=== PATIENT | male | born 1975 | race Caucasian/White ===

== ENCOUNTER 2019-02-08 06:58 | Emergency (ER) | payer OTHER, SELFPAY ==
[2019-02-08] VITALS (20 sets, daily range): BP systolic 140–167; BP diastolic 66–120; PULSE 78–108; RESP 13–24; TEMP 36.7–37.2; O2SAT 93–99; BMI 34.1
--- NOTE | 2019-02-08 07:29 | ED.NEUROSD ---
HPI - Neuro Symptoms/Deficit General Chief Complaint: Neuro Symptoms/Deficit Stated Complaint: LEFT SIDE FACE DROOP Time Seen by Provider: 02/08/19 07:05 Source: patient Mode of arrival: ambulatory Limitations: no limitations History of Present Illness HPI Narrative: Patient comes emergency department complaining left facial weakness and left hand numbness. He states that he 1st noticed it when he was at work at about 645 this morning. 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 Patient states that he then realized that his left upper lip felt fat. He states it is that he looked in the mirror and noticed that his mouth was drooping on the left side. States he has a patch of numbness that is red around the mouth but does not involve the rest of his face. No visual changes. No difficulty speaking or swallowing. No weakness in any extremity. Patient states he was able to drink his coffee without the coffee dribbling of his mouth. Patient denies recent viral illness. He has no history of CVA. He is not a smoker, and has no diagnosis of hypertension or diabetes. No family history of stroke or [place] in the 30s or 40s. No history of DVT. Patient has no history of coronary artery disease or other vascular pathology. Patient states he has a job that involves physical activity, but does not exercise regularly. No headache. No other complaints at this time. On Anticoagulants: No Related Data Home Medications Medication Instructions Recorded Confirmed No Known Home Medications 02/08/19 02/08/19 Allergies Allergy/AdvReac Type Severity Reaction Status Date / Time naproxen [NAPROXEN] Allergy Unknown Verified 02/08/19 07:28 Review of Systems Constitutional Denies chills, Denies fever(s), Denies lethargy and Reports weakness Eyes Denies change in vision, Denies eye discharge, Denies irritation and Denies loss of vision ENT Ears, Nose, Mouth, and Throat: Denies change in voice, Denies neck pain and Denies sore throat Cardiovascular Denies chest pain, Denies irregular heart rhythm, Denies lightheadedness, Denies palpitations, Denies dyspnea, Denies dyspnea on exertion and Denies orthopnea Respiratory Denies cough, Denies dyspnea, Denies dyspnea on exertion and Denies wheezing Gastrointestinal Gastrointestinal: Denies abdominal pain, Denies change in bowel habits, Denies diarrhea, Denies nausea and Denies vomiting Genitourinary Denies hematuria, Denies flank pain, Denies urinary incontinence and Denies urinary urgency Musculoskeletal Denies neck pain Integumentary/Breasts Denies pruritus, Denies erythema, Denies rash and Denies wounds Neurologic Denies confusion, Denies loss of vision and Reports weakness Comments: Mouth droop, perioral numbness on left side Psychiatric Denies anxiety, Denies confusion, Denies depression, Denies homicidal ideation and Denies suicidal ideation Endocrine Denies palpitations Hematologic/Lymphatic Denies easy bruising Allergic/Immunologic Denies wheezing [facility] Medical History Healthy adult (Acute) Social History Smoking Status: Never smoker Social History Smoking Status: Never smoker Exam Initial Vital Signs Initial Vital Signs: Vital Signs Temperature 98.1 F 02/08/19 07:15 Pulse Rate 105 H 02/08/19 07:15 Respiratory Rate 24 02/08/19 07:15 Blood Pressure 167/120 H 02/08/19 07:15 Pulse Oximetry 98 02/08/19 07:15 Const General: cooperative and well developed Nutritional Appearance: well nourished Orientation: alert, awake, oriented x3 and not confused [facility] Head: normocephalic and atraumatic Ears: external ears normal and TM's normal bilaterally Nose: external nose normal and No nasal discharge Face and sinus: sinuses nontender, face symmetric, no sinus tenderness and No dry mucous membranes Mouth: oral mucosae normal and moist mucous membranes Teeth and gingiva: dentition normal Throat: tonsils normal and uvula midline Eyes General: appearance normal, both eyes and all related structures Eyelids: eyelids normal Conjunctivae: conjunctivae normal Sclera: sclerae normal Pupils: PERRL EOM: EOM intact bilaterally Neck Neck: normal visual inspection, trachea midline, No lymphadenopathy, No midline deformity and No JVD Lymphatic: No lymphedema Chest Chest: normal inspection of the chest Resp Effort & Inspection: normal respiratory effort, able to speak in complete sentences, no respiratory distress and no use of accessory muscles Auscultation: clear to auscultation bilaterally, no rales, no rhonchi and no wheezes Cardio Rate: regular rate Rhythm: regular rhythm Heart Sounds: no click, no gallops, no murmurs and no rubs Pulses: normal peripheral pulses GI Inspection: non-distended Palpation: soft, no hepatosplenomegaly, No guarding, No pulsatile mass and No tender Auscultation: normal bowel sounds Back/Spine/Pelvis Back: No CVA tenderness Cervical Spine: cervical ROM normal and No pain with cervical ROM Thoracic/Lumbar Spine: thoracic and lumbar spine normal to inspection Skin General: no rashes or lesions noted, No jaundice and No petechiae Neuro General: alert, oriented x3 and gait normal Cranial Nerves: No CN's II-XI intact bilaterally (Patient has mild drooping of his left mouth.) Speech: speech normal Motor: strength 5/5 throughout Other: Cranial nerves are intact on the left side, with exception of a mild droop of the left side of the mouth only. Extrem General: full ROM, no clubbing, cyanosis or edema, no pedal edema and no calf tenderness Psych Appearance: well kempt Mental Status: mental status grossly normal Attitude: cooperative Thought Content: normal and suicidality Judgment: judgment good Course Course Narrative: Patient was evaluated by myself immediately upon arrival as per ?code stroke? protocol. He was found to be well appearing overall, and the droop and sense of numbness was very localized to a small area around the patient's mouth. His speech was clear, and he had no other evidence of deficit. His initial stroke scale score was 3, due to the decreased sharp sensation around the patient's mouth, as well as the droop, as well as the patient confusion over the months. The patient had been completely appropriate during my history taking, and was quite anxious about his condition, and I suspected this may be part of the reason for the confusion over the month. CT of the head was negative. Patient was given a dose of aspirin 324 mg at this time. As the patient also did not meet the criteria for Kauffman's palsy, he was sent for an MRI of the brain to evaluate possible acute cerebral ischemia. This did show a 2 cm area of acute ischemia in the superior parietal region on the right. Patient's NIH stroke scale at this point was 1-2, with only a very tiny patch of decreased sensation to sharp touch on the left aspect of the lower portion the bridge of his nose, and only a very slight, much improved area of weakness involving only the patient's mouth on the left. Patient was completely alert and oriented x4. I spoke with Dr. Tony Hernandez, the Stroke attending at [facility], and he requested CTA's of the head and neck, as well as echocardiogram. These were done, and after some delay and getting an official reading on the echocardiogram I did speak with [facility] neurologist again, though Dr. Miner was now on duty. She did state that she was concerned that the patient's CTA findings may represent a dissection of the internal carotid. However, after attempts to get the patient transferred to [facility], it was found that there were no beds available any other locations, so we did call [facility], instead. I spoke with Dr. Merritt, the on-call stroke attending, and he did agree to accept the patient on behalf of the hospitalist. was the accepting hospitalist. I did re-evaluate the patient multiple times during his stay in the emergency department, and he was found to be stable and feeling better, though somewhat anxious about his condition. We have discussed the findings on the patient's imaging studies, and the need for transfer. Patient's has been present for discussion. The patient and agree to the transfer. Orders Ordered: Discontinued Medications Aspirin (Aspirin Chew) 324 mg PO NOW ONE Stop: 02/08/19 07:30 Last Admin: 02/08/19 07:48 Dose: 324 mg Atorvastatin Calcium (Lipitor) 40 mg PO NOW ONE Stop: 02/08/19 10:49 Last Admin: 02/08/19 12:17 Dose: 40 mg Sodium Chloride (Normal Saline 0.9%) 1,000 mls @ 1,000 mls/hr IV BOLUS ONE Stop: 02/08/19 08:10 Last Infusion: 02/08/19 08:48 Dose: 0 mls/hr Admin: 02/08/19 07:48 Dose: 1,000 mls/hr Vital Signs - 8 hr 02/08/19 13:55 02/08/19 14:58 02/08/19 16:00 Temperature 98.4 F 99 F Pulse Rate 103 H 88 89 Respiratory Rate 17 14 15 Blood Pressure [Right Arm] 147/98 H 157/104 H 149/98 H Pulse Oximetry 97 97 98 02/08/19 16:30 02/08/19 17:00 02/08/19 17:38 Temperature Pulse Rate 89 97 H 93 H Respiratory Rate 15 20 20 Blood Pressure [Right Arm] 150/92 H 146/94 H 153/97 H Pulse Oximetry 95 98 96 02/08/19 18:38 02/08/19 19:30 02/08/19 20:00 Temperature Pulse Rate 90 88 84 Respiratory Rate 20 13 14 Blood Pressure [Right Arm] 165/101 H 144/98 H 140/80 Pulse Oximetry 99 97 95 MDM - Neuro Symptoms/Deficit Medical Records Attestation: I reviewed the patient's medical records. Lab Data Attestation: I reviewed the patient's lab results. Result diagrams: 02/08/19 07:30 02/08/19 07:30 Lab Results 02/08/19 02/08/19 02/08/19 Range/Units 07:30 07:30 07:30 WBC 5.3 (4.5-11.0) X10^3/uL RBC 4.98 (4.5-5.9) X10^6/uL Hgb 14.9 (13.5-17.5) g/dL Hct 42.5 (41-53) % MCV 85.4 (80-100) fL MCH 29.9 (26-34) PG MCHC 35.0 (30-36) % RDW 12.7 (11.6-14.8) % Plt Count 128 L (150-400) X10^3/uL Neut % (Auto) 53.9 (50-75) % Lymph % (Auto) 32.9 (25-40) % [place] % (Auto) 11.3 (3-14) % Eos % (Auto) 1.3 L (2-4) % Baso % (Auto) 0.6 (0-2) % Neut # (Auto) 2900 (0864-0987) /uL Lymph # (Auto) 1800 (3859-2175) /uL [place] # (Auto) 600 (0-900) /uL Eos # (Auto) 100 (0-450) /uL Baso # (Auto) 0 (0-100) /uL PT 10.8 (10.1-12.7) SECONDS INR 0.9 (0.9-1.3) Sodium 140 (137-145) mmol/L Potassium 4.1 (3.4-5.1) mmol/L Chloride 104 (98-107) mmol/L Carbon Dioxide 28 (22-32) mmol/L BUN 17 (9-20) mg/dL Creatinine 0.70 (0.66-1.25) mg/dL Estimated GFR > 60.0 (>60) mL/min BUN/Creatinine Ratio 24.3 H (6-22) Glucose 118 H (70-100) mg/dL Calcium 9.3 (8.4-10.2) mg/dL Total Bilirubin 0.7 (0.2-1.3) mg/dL AST 46 (17-59) IU/L ALT 71 (21-72) IU/L Alkaline Phosphatase 50 (38-126) U/L Total Protein 7.6 (6.3-8.2) g/dL Albumin 4.3 (3.5-5.0) g/dL Globulin 3.3 (1.7-4.1) g/dL Albumin/Globulin Ratio 1.3 (1.0-2.8) Urine Dip Bedside Urine Glucose Negative Bedside Urine Bilirubin - Negative Bedside Urine Ketone - Negative Urine Specific [place] 1.020 Bedside Urine Occult Blood - Negative Bedside Urine pH 6.0 Bedside Urine Protein - Negative Bedside Urine Urobilinogen - Negative Bedside Urine Nitrite - Negative Bedside Urine Leukocytes - Negative Esterase Imaging Data MRI - head: Radiologist's impression: [facility] DATE TYPE STATUS AUTHOR Hx 02/08/19 10:58 Aubrey Montiel 02/08/19 10:48 Jerel Lambert 02/08/19 07:42 Mary Ann Malik 02/08/19 07:38 Yasir Holman Jeremy R 43, M1975 REG ER, ED.LOC - Main ED: R11 182.88cm 114.1kg BMI: 34.1kg/m? Neuro Symptoms/Deficit Search Chart ONSET Today 14:58 Artie Mercedes M [address] [address] Magnetic Resonance Report Signed Patient: DarenFrankieArtie RMR#: [id number] : 1975Acct:[id number] Age/Sex: 43 / MDate of Service: 02/08/19 Loc: ED Accession Number: [id number] Procedure: MR brain (IAC) wwo con Ordering Provider: Jeimy King MD PROCEDURE: MR BRAIN (IAC) WWO CON INDICATIONS: facial droop TECHNIQUE: Noncontrast sagittal T1 spin echo, axial FLAIR, axial gradient echo, axial diffusion and ADC through the brain. Axial thin-slice 3D CISS, coronal TruFISP, axial T1 spin echo with fat saturation through the internal auditory canals. After the administration of contrast, thin slice axial and coronal T1 spin echo with fat saturation through the internal auditory canals, and axial T1 spin echo with fat saturation through the brain. COMPARISON: [facility], CT, CT HEAD/BRAIN WO CON, 02/08/2019, 7:11. FINDINGS: Image quality: Excellent. Cerebellopontine angles: No cerebellopontine angle masses. Inner ear structures appear normally formed. No suspicious enhancement in the internal auditory canal or along the course of the 7th cranial nerve. CSF spaces: Ventricles are normal in size and shape. No extra-axial fluid collections. Basal cisterns are patent. Brain: No intracranial bleeds or mass effects. [place]-white matter interface is intact except at the right parietal region superiorly where a 2 cm focus of acute or subacute ischemic injury can be seen on the diffusion imaging pulse sequence series 10 image 70. This has a subtle degree of elevated flair signal and on the gradient T1 imaging a small focus of curvilinear low signal intensity is present conceivably a thrombus within a vessel within the associated cortical sulcus. No significant mass effect. No abnormal intracranial enhancement. Diffusion weighted images demonstrate no acute ischemic insults. Brainstem appears normal. Normal intravascular flow voids are present. Skull and face: Calvarial marrow signal is normal. Orbits appear normal. Sinuses: Sinuses and mastoids are clear. IMPRESSION: Small 2 cm acute or subacute ischemic injury involving the right parietal lobe superiorly as discussed, potentially embolic in origin given the small low signal intensity curvilinear signal abnormality in an area of cortical vessel within the sulcus abutting the area of injury. The findings were discussed in detail with the ordering emergency room physician caring for the patient. This area of abnormality cannot be identified on the earlier CT scanning from today. No additional area of prior ischemic injury is found. No cranial nerve abnormality is identified. Dictated by: Yasir Holman M.D. on 02/08/2019 at 9:54 Approved by: Yasir Holman M.D. on 02/08/2019 at 10:05 CT scan - head: Radiologist's impression: PROCEDURE: CT HEAD/BRAIN WO CON INDICATIONS: Facial droop, numbness to lt hand TECHNIQUE: Noncontrast 4.5 mm thick angled axial sections acquired from the foramen magnum to the vertex, with coronal and sagittal reformats. For radiation dose reduction, the following was used: automated exposure control, adjustment of mA and/or kV according to patient size. COMPARISON: None. FINDINGS: Image quality: Excellent. CSF spaces: Basal cisterns are patent. No extra-axial fluid collections. Ventricles are normal in size and shape. Brain: No midline shift. No intracranial masses or hemorrhage. [place]-white matter interface is normal. Skull and face: Calvarium and visualized facial bones are intact, without suspicious lesions. Sinuses: Visualized sinuses and mastoids are clear. IMPRESSION: 1. No acute intracranial abnormalities. No significant discrepancy with the night baker radiology preliminary report. Dictated by: Wally Malik M.D. on 02/08/2019 at 7:48 Approved by: Wally Malik M.D. on 02/08/2019 at 7:49 CT angio head/neck: Radiologist's impression: PROCEDURE: CT ANGIO HEAD AND NECK INDICATIONS: left facial droop TECHNIQUE: Pre-contrast images were performed earlier in the day and are not repeated. After the administration of intravenous contrast, 1 mm thick sections acquired from the aortic arch through the [place]. Post-contrast 4.5 mm thick sections then re-acquired from the foramen magnum to the vertex. 3-dimensional lbthgba-qoigvljdx-kpbrvxuhtj (MIP) and/or volume rendering reformats were acquired of the central intracranial vasculature and neck separately. COMPARISON: [facility], MR, MR BRAIN (IAC) WWO CON, 02/08/2019, 8:55. [facility], CT, CT HEAD/BRAIN WO CON, 02/08/2019, 7:11. FINDINGS: Image quality: Excellent. BRAIN: CSF spaces: Ventricles are normal in size and shape. Basal cisterns are patent. No extra-axial fluid collections. Brain: No midline shift. No intracranial bleeds or masses. [place]-white matter interface appears intact. Skull and face: Calvarium and facial bones appear intact, without suspicious lesions. Orbits appear normal. Sinuses: Sinuses and mastoids are clear. HEAD CT ANGIOGRAPHY: Anterior circulation: There is generalized narrowing seen of the right petrous intracranial internal carotid artery compared to the left. 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 This is considered to be a normal developmental variant of the [place] of [place], of typically no clinical consequence. The flow within the paired anterior cerebral arteries is otherwise normal and symmetric. The flow within the middle cerebral arteries is mildly asymmetric, and decreased on the right. No focal stenosis is seen within the right proximal middle cerebral artery. The anterior communicating artery is seen. No aneurysms are seen. Posterior circulation: Visualized portions of the vertebral arteries demonstrate normal caliber, and join to form a normal appearing basilar artery. Flow within the posterior cerebral arteries is normal and symmetric. No aneurysms are seen. NECK CT ANGIOGRAPHY: Carotid system: The great vessels demonstrate a conventional anatomy as they arise from the aortic arch. The origins of the common carotid arteries appear patent. The common carotid arteries demonstrate normal caliber and courses. The bifurcation regions are both widely patent. The internal carotid arteries demonstrate normal calibers and courses. Posterior circulation: The origins of the vertebral arteries both appear widely patent. The more superior extracranial portions of both vertebral arteries also demonstrate normal courses and calibers. They join to form a normal appearing basilar artery. Soft tissues: Visualized neck soft tissues demonstrate no suspicious abnormalities. Bones: No suspicious bony lesions. Visualized cervical spine appears normally aligned. IMPRESSION: Generalized narrowing of the right petrous internal carotid artery compared to the left. There is asymmetric flow seen within the middle cerebral arteries, decreased on the right compared to the left. [place] anomaly incidentally noted, with an aplastic right A1 segment. Any quantitative measurements of stenosis were performed using NASCET criteria. Dictated by: Aubrey Montiel M.D. on 02/08/2019 at 10:18 Approved by: Aubrey Montiel M.D. on 02/08/2019 at 10:23 Echocardiogram: Radiologist's impression: [place] [facility] +---------+ : : [address] : : : : [id number] : : : : Phone: [phone] Echocardiogram Report + + :Name: ARTIE MERCEDES Study Date: 02/08/2019 Height: 72 in : :[facility] Exam Location: [facility] Weight: 255 lb : : Gender: Male BSA: 2.4 m2 : :: 1975 Age: 43 yrs BP: 164/102 mmHg: :Reason For Study: STROKE : : Performed By: Johnny Worrell : :Referring: JEIMY KING : + + Interpretation Summary The ejection fraction is estimated to be 60-65%. Injection of contrast documented an interatrial shunt. There is no significant valvular heart disease. Procedure: A two-dimensional transthoracic echocardiogram with color flow and Doppler was performed. The study quality was technically good. There is no prior echocardiogram noted for this patient. A saline contrast injection was performed to assess for cardiac shunting. The patient was in normal sinus rhythm during the exam. Left Ventricle: The left ventricle is normal in size. There is normal left ventricular wall thickness. The ejection fraction is estimated to be 60-65%. There are no focal wall motion abnormalities. Right Ventricle: The right ventricle is normal in size and function. Atria: The left atrium is mildly dilated. Right atrial size is normal. Injection of contrast documented an interatrial shunt. Mitral Valve: The mitral valve is normal in structure and function. There is trace mitral regurgitation. Aortic Valve: The aortic valve is normal in structure and function. The aortic valve is trileaflet. The aortic valve opens well. No aortic regurgitation is present. Tricuspid Valve: The tricuspid valve is normal in structure and function. No tricuspid regurgitation. Pulmonary artery pressures cannot be estimated because of the lack of a measurable TR jet velocity. Pulmonic Valve: The pulmonic valve is normal in structure and function. There is trace pulmonic regurgitation. Great Vessels: The aortic root is normal size. The ascending aorta is mildly enlarged. The pulmonary artery is normal size. The IVC is of normal diameter and collapses greater than 50% with a sniff. This suggests a low right atrial pressure of 3 mm Hg. Pericardium/ Pleura There is no pericardial effusion. There is no pleural effusion. MMode/2D Measurements & Calculations LVIDd: 5.1 cm LVOT diam: 2.7 cm LVIDs: 3.6 cm Ao root diam: 3.3 cm FS: 29.5 % Aortic Jxn: 3.0 cm EPSS: 0.21 cm asc Aorta Diam: 3.8 cm IVSd: 1.3 cm LVPWd: 1.0 cm LV lara. diameter/BSA (cm/m^2): 2.2 LV sys. diameter/BSA (cm/m^2): 1.5 LA dimension: 4.0 cm RA long axis: 5.4 cm LA A2 area: 22.6 cm2 RA area: 21.1 cm2 LA A4 area: 23.7 cm2 RA vol: 70.4 ml LA length (vol): 5.6 cm RA : 29.8 ml/m2 LA vol: 80.8 ml IVC diam: 1.8 cm LA vol index: 34.2 ml/m2 Doppler Measurements & Calculations Ao V2 max: 150.6 cm/sec LVOT Max [place]: 122.3 cm/sec Ao V2 mean: 109.3 cm/sec LV V1 max P.0 mmHg Ao max P.1 mmHg LV V1 VTI: 26.2 cm Ao mean P.2 mmHg LANI(I,D): 5.3 cm2 Ao V2 VTI: 27.3 cm LANI(V,D): 4.5 cm2 sev ratio: 0.96 LANI indexed to BSA (cm^2/m^2): 2.3 MV E max pedro luis: 66.8 cm/sec PA V2 max: 83.1 cm/sec MV A max pedro luis: 66.2 cm/sec PA V2 mean: 64.0 cm/sec MV E/A: 1.0 PA mean P.7 mmHg Med Peak E' Pedro Luis: 6.9 cm/sec PA pr(Accel): 49.1 mmHg E/E' med: 9.7 PA Accel Time: 0.07 sec MV dec time: 0.19 sec SV(LVOT): 145.0 ml Reading Physician:01:31 PM ECG Data Attestation: I personally reviewed and interpreted this ECG as follows: (See below) Interpretation: Twelve lead EKG performed February 08, 2018 and 716, as follows: Regular ventricular rhythm with a rate of 107 beats per minute P waves present correlating with QRS complexes OH interval 185 millisecond QRS duration 86 milliseconds QTC interval 378 millisecond No ectopy No ST segment elevation or depression Interpretation: Sinus tachycardia; no signs of acute ischemia; abnormal EKG as interpreted being ED MD. Critical Care Time Critical Care Time: Yes Total Critical Care Time: 60 Attestation: Critical care time was necessary, due to high probability of imminent neurologic decline. Critical care time is exclusive of separately billable procedures. Critical care time included: Interviewing and examining the patient, ordering and reviewing laboratory studies, ordering and reviewing imaging studies, evaluating cardiac output, evaluating oxygen saturation, discussion with consultants, discussion with family, re-examining the patient, and documentation. Discharge Plan Departure Patient Disposition: Home Clinical Impression: Carotid artery dissection Cerebrovascular accident Qualifiers: CVA mechanism: other Qualified Code(s): I63.89 - Other cerebral infarction Prescriptions: No Action No Known Home Medications RF: 0 Referrals: Evangelina Renee ARNP [Primary Care Provider] -
--- NOTE | 2019-02-08 07:32 | ED_ITS ---
HPI - Neuro Symptoms/Deficit General Chief Complaint: Neuro Symptoms/Deficit Stated Complaint: LEFT SIDE FACE DROOP Time Seen by Provider: 02/08/19 07:05 Source: patient Mode of arrival: ambulatory Limitations: no limitations History of Present Illness HPI Narrative: Patient comes emergency department complaining left facial weakness and left hand numbness. He states that he 1st noticed it when he was at work at about 645 this morning. 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 Patient states that he then realized that his left upper lip felt fat. He states it is that he looked in the mirror and noticed that his mouth was drooping on the left side. States he has a patch of numbness that is red around the mouth but does not involve the rest of his face. No visual changes. No difficulty speaking or swallowing. No weakness in any extremity. Patient states he was able to drink his coffee without the coffee dribbling of his mouth. Patient denies recent viral illness. He has no history of CVA. He is not a smoker, and has no diagnosis of hypertension or diabetes. No family history of stroke or [place] in the 30s or 40s. No history of DVT. Patient has no history of coronary artery disease or other vascular pathology. Patient states he has a job that involves physical activity, but does not exercise regularly. No headache. No other complaints at this time. On Anticoagulants: No Related Data Home Medications Medication Instructions Recorded Confirmed No Known Home Medications 02/08/19 02/08/19 Allergies Allergy/AdvReac Type Severity Reaction Status Date / Time naproxen [NAPROXEN] Allergy Unknown Verified 02/08/19 07:28 Review of Systems Constitutional Denies chills, Denies fever(s), Denies lethargy and Reports weakness Eyes Denies change in vision, Denies eye discharge, Denies irritation and Denies loss of vision ENT Ears, Nose, Mouth, and Throat: Denies change in voice, Denies neck pain and Denies sore throat Cardiovascular Denies chest pain, Denies irregular heart rhythm, Denies lightheadedness, Denies palpitations, Denies dyspnea, Denies dyspnea on exertion and Denies orthopnea Respiratory Denies cough, Denies dyspnea, Denies dyspnea on exertion and Denies wheezing Gastrointestinal Gastrointestinal: Denies abdominal pain, Denies change in bowel habits, Denies diarrhea, Denies nausea and Denies vomiting Genitourinary Denies hematuria, Denies flank pain, Denies urinary incontinence and Denies urinary urgency Musculoskeletal Denies neck pain Integumentary/Breasts Denies pruritus, Denies erythema, Denies rash and Denies wounds Neurologic Denies confusion, Denies loss of vision and Reports weakness Comments: Mouth droop, perioral numbness on left side Psychiatric Denies anxiety, Denies confusion, Denies depression, Denies homicidal ideation and Denies suicidal ideation Endocrine Denies palpitations Hematologic/Lymphatic Denies easy bruising Allergic/Immunologic Denies wheezing [facility] Medical History Healthy adult (Acute) Social History Smoking Status: Never smoker Social History Smoking Status: Never smoker Exam Initial Vital Signs Initial Vital Signs: Vital Signs Temperature 98.1 F 02/08/19 07:15 Pulse Rate 105 H 02/08/19 07:15 Respiratory Rate 24 02/08/19 07:15 Blood Pressure 167/120 H 02/08/19 07:15 Pulse Oximetry 98 02/08/19 07:15 Const General: cooperative and well developed Nutritional Appearance: well nourished Orientation: alert, awake, oriented x3 and not confused [facility] Head: normocephalic and atraumatic Ears: external ears normal and TM's normal bilaterally Nose: external nose normal and No nasal discharge Face and sinus: sinuses nontender, face symmetric, no sinus tenderness and No dry mucous membranes Mouth: oral mucosae normal and moist mucous membranes Teeth and gingiva: dentition normal Throat: tonsils normal and uvula midline Eyes General: appearance normal, both eyes and all related structures Eyelids: eyelids normal Conjunctivae: conjunctivae normal Sclera: sclerae normal Pupils: PERRL EOM: EOM intact bilaterally Neck Neck: normal visual inspection, trachea midline, No lymphadenopathy, No midline deformity and No JVD Lymphatic: No lymphedema Chest Chest: normal inspection of the chest Resp Effort & Inspection: normal respiratory effort, able to speak in complete sentences, no respiratory distress and no use of accessory muscles Auscultation: clear to auscultation bilaterally, no rales, no rhonchi and no wheezes Cardio Rate: regular rate Rhythm: regular rhythm Heart Sounds: no click, no gallops, no murmurs and no rubs Pulses: normal peripheral pulses GI Inspection: non-distended Palpation: soft, no hepatosplenomegaly, No guarding, No pulsatile mass and No tender Auscultation: normal bowel sounds Back/Spine/Pelvis Back: No CVA tenderness Cervical Spine: cervical ROM normal and No pain with cervical ROM Thoracic/Lumbar Spine: thoracic and lumbar spine normal to inspection Skin General: no rashes or lesions noted, No jaundice and No petechiae Neuro General: alert, oriented x3 and gait normal Cranial Nerves: No CN's II-XI intact bilaterally (Patient has mild drooping of his left mouth.) Speech: speech normal Motor: strength 5/5 throughout Other: Cranial nerves are intact on the left side, with exception of a mild droop of the left side of the mouth only. Extrem General: full ROM, no clubbing, cyanosis or edema, no pedal edema and no calf tenderness Psych Appearance: well kempt Mental Status: mental status grossly normal Attitude: cooperative Thought Content: normal and suicidality Judgment: judgment good Course Course Narrative: Patient was evaluated by myself immediately upon arrival as per ?code stroke? protocol. He was found to be well appearing overall, and the droop and sense of numbness was very localized to a small area around the patient's mouth. His speech was clear, and he had no other evidence of deficit. His initial stroke scale score was 3, due to the decreased sharp sensation around the patient's mouth, as well as the droop, as well as the patient confusion over the months. The patient had been completely appropriate during my history taking, and was quite anxious about his condition, and I suspected this may be part of the reason for the confusion over the month. CT of the head was negative. Patient was given a dose of aspirin 324 mg at this time. As the patient also did not meet the criteria for Kauffman's palsy, he was sent for an MRI of the brain to evaluate possible acute cerebral ischemia. This did show a 2 cm area of acute ischemia in the superior parietal region on the right. Patient's NIH stroke scale at this point was 1-2, with only a very tiny patch of decreased sensation to sharp touch on the left aspect of the lower portion the bridge of his nose, and only a very slight, much improved area of weakness involving only the patient's mouth on the left. Patient was completely alert and oriented x4. I spoke with Dr. Tony Hernandez, the Stroke attending at [facility], and he requested CTA's of the head and neck, as well as echocardiogram. These were done, and after some delay and getting an official reading on the echocardiogram I did speak with [facility] neurologist again, though Dr. Miner was now on duty. She did state that she was concerned that the patie nt's CTA findings may represent a dissection of the internal carotid. However, after attempts to get the patient transferred to [facility], it was found that there were no beds available any other locations, so we did call [facility], instead. I spoke with Dr. Merritt, the on-call stroke attending, and he did agree to accept the patient on behalf of the hospitalist. was the accepting hospitalist. I did re-evaluate the patient multiple times during his stay in the emergency department, and he was found to be stable and feeling better, though somewhat anxious about his condition. We have discussed the findings on the patient's imaging studies, and the need for transfer. Patient's has been present for discussion. The patient and agree to the transfer. Orders Ordered: Discontinued Medications Aspirin (Aspirin Chew) 324 mg PO NOW ONE Stop: 02/08/19 07:30 Last Admin: 02/08/19 07:48 Dose: 324 mg Atorvastatin Calcium (Lipitor) 40 mg PO NOW ONE Stop: 02/08/19 10:49 Last Admin: 02/08/19 12:17 Dose: 40 mg Sodium Chloride (Normal Saline 0.9%) 1,000 mls @ 1,000 mls/hr IV BOLUS ONE Stop: 02/08/19 08:10 Last Infusion: 02/08/19 08:48 Dose: 0 mls/hr Admin: 02/08/19 07:48 Dose: 1,000 mls/hr Vital Signs - 8 hr 02/08/19 13:55 02/08/19 14:58 02/08/19 16:00 Temperature 98.4 F 99 F Pulse Rate 103 H 88 89 Respiratory Rate 17 14 15 Blood Pressure [Right Arm] 147/98 H 157/104 H 149/98 H Pulse Oximetry 97 97 98 02/08/19 16:30 02/08/19 17:00 02/08/19 17:38 Temperature Pulse Rate 89 97 H 93 H Respiratory Rate 15 20 20 Blood Pressure [Right Arm] 150/92 H 146/94 H 153/97 H Pulse Oximetry 95 98 96 02/08/19 18:38 02/08/19 19:30 02/08/19 20:00 Temperature Pulse Rate 90 88 84 Respiratory Rate 20 13 14 Blood Pressure [Right Arm] 165/101 H 144/98 H 140/80 Pulse Oximetry 99 97 95 MDM - Neuro Symptoms/Deficit Medical Records Attestation: I reviewed the patient's medical records. Lab Data Attestation: I reviewed the patient's lab results. Result diagrams: 02/08/19 07:30 02/08/19 07:30 Lab Results 02/08/19 02/08/19 02/08/19 Range/Units 07:30 07:30 07:30 WBC 5.3 (4.5-11.0) X10^3/uL RBC 4.98 (4.5-5.9) X10^6/uL Hgb 14.9 (13.5-17.5) g/dL Hct 42.5 (41-53) % MCV 85.4 (80-100) fL MCH 29.9 (26-34) PG MCHC 35.0 (30-36) % RDW 12.7 (11.6-14.8) % Plt Count 128 L (150-400) X10^3/uL Neut % (Auto) 53.9 (50-75) % Lymph % (Auto) 32.9 (25-40) % [place] % (Auto) 11.3 (3-14) % Eos % (Auto) 1.3 L (2-4) % Baso % (Auto) 0.6 (0-2) % Neut # (Auto) 2900 (1419-4566) /uL Lymph # (Auto) 1800 (9698-4838) /uL [place] # (Auto) 600 (0-900) /uL Eos # (Auto) 100 (0-450) /uL Baso # (Auto) 0 (0-100) /uL PT 10.8 (10.1-12.7) SECONDS INR 0.9 (0.9-1.3) Sodium 140 (137-145) mmol/L Potassium 4.1 (3.4-5.1) mmol/L Chloride 104 (98-107) mmol/L Carbon Dioxide 28 (22-32) mmol/L BUN 17 (9-20) mg/dL Creatinine 0.70 (0.66-1.25) mg/dL Estimated GFR > 60.0 (>60) mL/min BUN/Creatinine Ratio 24.3 H (6-22) Glucose 118 H (70-100) mg/dL Calcium 9.3 (8.4-10.2) mg/dL Total Bilirubin 0.7 (0.2-1.3) mg/dL AST 46 (17-59) IU/L ALT 71 (21-72) IU/L Alkaline Phosphatase 50 (38-126) U/L Total Protein 7.6 (6.3-8.2) g/dL Albumin 4.3 (3.5-5.0) g/dL Globulin 3.3 (1.7-4.1) g/dL Albumin/Globulin Ratio 1.3 (1.0-2.8) Urine Dip Bedside Urine Glucose Negative Bedside Urine Bilirubin - Negative Bedside Urine Ketone - Negative Urine Specific [place] 1.020 Bedside Urine Occult Blood - Negative Bedside Urine pH 6.0 Bedside Urine Protein - Negative Bedside Urine Urobilinogen - Negative Bedside Urine Nitrite - Negative Bedside Urine Leukocytes - Negative Esterase Imaging Data MRI - head: Radiologist's impression: [facility] DATE TYPE STATUS AUTHOR Hx 02/08/19 10:58 Aubrey Montiel 02/08/19 10:48 Jerel Lambert 02/08/19 07:42 Mary Ann Malik 02/08/19 07:38 Yasir Holman Jeremy R 43, M1975 REG ER, ED.LOC - Main ED: R11 182.88cm 114.1kg BMI: 34.1kg/m? Neuro Symptoms/Deficit Search Chart ONSET Today 14:58 Artie Mercedes M [address] [address] Magnetic Resonance Report Signed Patient: DarenFrankieArtie RMR#: [id number] : 1975Acct:[id number] Age/Sex: 43 / MDate of Service: 02/08/19 Loc: ED Accession Number: [id number] Procedure: MR brain (IAC) wwo con Ordering Provider: Jeimy King MD PROCEDURE: MR BRAIN (IAC) WWO CON INDICATIONS: facial droop TECHNIQUE: Noncontrast sagittal T1 spin echo, axial FLAIR, axial gradient echo, axial diffusion and ADC through the brain. Axial thin-slice 3D CISS, coronal TruFISP, axial T1 spin echo with fat saturation through the internal auditory canals. After the administration of contrast, thin slice axial and coronal T1 spin echo with fat saturation through the internal auditory canals, and axial T1 spin echo with fat saturation through the brain. COMPARISON: [facility], CT, CT HEAD/BRAIN WO CON, 02/08/2019, 7:11. FINDINGS: Image quality: Excellent. Cerebellopontine angles: No cerebellopontine angle masses. Inner ear structures appear normally formed. No suspicious enhancement in the internal auditory canal or along the course of the 7th cranial nerve. CSF spaces: Ventricles are normal in size and shape. No extra-axial fluid collections. Basal cisterns are patent. Brain: No intracranial bleeds or mass effects. Branham-white matter interface is intact except at the right parietal region superiorly where a 2 cm focus of acute or subacute ischemic injury can be seen on the diffusion imaging pulse sequence series 10 image 70. This has a subtle degree of elevated flair signal and on the gradient T1 imaging a small focus of curvilinear low signal intensity is present conceivably a thrombus within a vessel within the associated cortical sulcus. No significant mass effect. No abnormal intracranial enhancement. Diffusion weighted images demonstrate no acute ischemic insults. Brainstem appears normal. Normal intravascular flow voids are pres ent. Skull and face: Calvarial marrow signal is normal. Orbits appear normal. Sinuses: Sinuses and mastoids are clear. IMPRESSION: Small 2 cm acute or subacute ischemic injury involving the right parietal lobe superiorly as discussed, potentially embolic in origin given the small low signal intensity curvilinear signal abnormality in an area of cortical vessel within the sulcus abutting the area of injury. The findings were discussed in detail with the ordering emergency room physician caring for the patient. This area of abnormality cannot be identified on the earlier CT scanning from today. No additional area of prior ischemic injury is found. No cranial nerve abno rmality is identified. Dictated by: Yasir Holman M.D. on 02/08/2019 at 9:54 Approved by: Yasir Holman M.D. on 02/08/2019 at 10:05 CT scan - head: Radiologist's impression: PROCEDURE: CT HEAD/BRAIN WO CON INDICATIONS: Facial droop, numbness to lt hand TECHNIQUE: Noncontrast 4.5 mm thick angled axial sections acquired from the foramen magnum to the vertex, with coronal and sagittal reformats. For radiation dose reduction, the following was used: automated exposure control, adjustment of mA and/or kV according to patient size. COMPARISON: None. FINDINGS: Image quality: Excellent. CSF spaces: Basal cisterns are patent. No extra-axial fluid collections. Ventricles are normal in size and shape. Brain: No midline shift. No intracranial masses or hemorrhage. Branham-white matter interface is normal. Skull and face: Calvarium and visualized facial bones are intact, without suspicious lesions. Sinuses: Visualized sinuses and mastoids are clear. IMPRESSION: 1. No acute intracranial abnormalities. No significant discrepancy with the night shift supervisor radiology preliminary report. Dictated by: Wally Malik M.D. on 02/08/2019 at 7:48 Approved by: Wally Malik M.D. on 02/08/2019 at 7:49 CT angio head/neck: Radiologist's impression: PROCEDURE: CT ANGIO HEAD AND NECK INDICATIONS: left facial droop TECHNIQUE: Pre-contrast images were performed earlier in the day and are not repeated. After the administration of intravenous contrast, 1 mm thick sections acquired from the aortic arch through the [place] of Baer. Post-contrast 4.5 mm thick sections then re- acquired from the foramen magnum to the vertex. 3-dimensional cldruni-xywibaobn-bpfcbytsfq (M IP) and/or volume rendering reformats were acquired of the central intracranial vasculature and neck separately. COMPARISON: [facility], MR, MR BRAIN (IAC) WWO CON, 02/08/2019, 8:55. [facility], CT, CT HEAD/BRAIN WO CON, 02/08/2019, 7:11. FINDINGS: Image quality: Excellent. BRAIN: CSF spaces: Ventricles are normal in size and shape. Basal cisterns are patent. No extra-axial fluid collections. Brain: No midline shift. No intracranial bleeds or masses. Branham-white matter interface appears intact. Skull and face: Calvarium and facial bones appear intact, without suspicious lesions. Orbits appear normal. Sinuses: Sinuses and mastoids are clear. HEAD CT ANGIOGRAPHY: Anterior circulation: There is generalized narrowing seen of the right petrous intracranial internal carotid artery compared to the left. 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 This is considered to be a normal developmental variant of the [place] of Ba[place], of typically no clinical consequence. The flow within the paired anterior cerebral arteries is otherwise normal and symmetric. The flow within the middle cerebral arteries is mildly asymmetric, and decreased on the right. No focal stenosis is seen within the right proximal middle cerebral artery. The anterior communicating artery is seen. No aneurysms are seen. Posterior circulation: Visualized portions of the vertebral arteries demonstrate normal caliber, and join to form a normal appearing basilar artery. Flow within the posterior cerebral arteries is normal and symmetric. No aneurysms are seen. NECK CT ANGIOGRAPHY: Carotid system: The great vessels demonstrate a conventional anatomy as they arise from the aortic arch. The origins of the common carotid arteries appear patent. The common carotid arteries demonstrate normal caliber and courses. The bifurcation regions are both widely patent. The internal carotid arteries demonstrate normal calibers and courses. Posterior circulation: The origins of the vertebral arteries both appear widely patent. The more superior extracranial portions of both vertebral arteries also demonstrate normal courses and calibers. They join to form a normal appearing basilar ar opal. Soft tissues: Visualized neck soft tissues demonstrate no suspicious abnormalities. Bones: No suspicious bony lesions. Visualized cervical spine appears normally aligned. IMPRESSION: Generalized narrowing of the right petrous internal carotid artery compared to the left. There is asymmetric flow seen within the middle cerebral arteries, decreased on the right compared to the left. [place] of [place]er anomaly incidentally noted, with an aplastic right A1 segment. Any quantitative measurements of stenosis were performed using NASCET criteria. Dictated by: Aubrey Montiel M.D. on 02/08/2019 at 10:18 Approved by: Aubrey Montiel M.D. on 02/08/2019 at 10:23 Echocardiogram: Radiologist's impression: [place]---------+ [facility] +---------+ : : [address] : : : : [place] : : : : [id number] : : : : Phone: [phone] Echocardiogram Report + + :Name: ARTIE MERCEDES Study Date: 02/08/2019 Height: 72 in : [facility] Weight: 255 lb : : Gender: Male BSA: 2.4 m2 : :: 1975 Age: 43 yrs BP: 164/102 mmHg: :Reason For Study: STROKE : : Performed By: Johnny Worrell : :Referring: JEIMY KING : + + Interpretation Summary The ejection fraction is estimated to be 60-65%. Injection of contrast documented an interatrial shunt. There is no significant valvular heart disease. Procedure: A two-dimensional transthoracic echocardiogram with color flow and Doppler was performed. The study quality was technically good. There is no prior echocardiogram noted for this patient. A saline contrast injection was performed to assess for cardiac shunting. The patient was in normal sinus rhythm during the exam. Left Ventricle: The left ventricle is normal in size. There is normal left ventricular wall thickness. The ejection fraction is estimated to be 60-65%. There are no focal wall motion abnormalities. Right Ventricle: The right ventricle is normal in size and function. Atria: The left atrium is mildly dilated. Right atrial size is normal. Injection of contrast documented an interatrial shunt. Mitral Valve: The mitral valve is normal in structure and function. There is trace mitral regurgitation. Aortic Valve: The aortic valve is normal in structure and function. The aortic valve is trileaflet. The aortic valve opens well. No aortic regurgitation is present. Tricuspid Valve: The tricuspid valve is normal in structure and function. No tricuspid regurgitation. Pulmonary artery pressures cannot be estimated because of the lack of a measurable TR jet velocity. Pulmonic Valve: The pulmonic valve is normal in structure and function. There is trace pulmonic regurgitation. Great Vessels: The aortic root is normal size. The ascending aorta is mildly enlarged. The pulmonary artery is normal size. The IVC is of normal diameter and collapses greater than 50% with a sniff. This suggests a low right atrial pressure of 3 mm Hg. Pericardium/ Pleura There is no pericardial effusion. There is no pleural effusion. MMode/2D Measurements & Calculations LVIDd: 5.1 cm LVOT diam: 2.7 cm LVIDs: 3.6 cm Ao root diam: 3.3 cm FS: 29.5 % Aortic Jxn: 3.0 cm EPSS: 0.21 cm asc Aorta Diam: 3.8 cm IVSd: 1.3 cm LVPWd: 1.0 cm LV lara. diameter/BSA (cm/m^2): 2.2 LV sys. diameter/BSA (cm/m^2): 1.5 LA dimension: 4.0 cm RA long axis: 5.4 cm LA A2 area: 22.6 cm2 RA area: 21.1 cm2 LA A4 area: 23.7 cm2 RA vol: 70.4 ml LA length (vol): 5.6 cm RA : 29.8 ml/m2 LA vol: 80.8 ml IVC diam: 1.8 cm LA vol index: 34.2 ml/m2 Doppler Measurements & Calculations Ao V2 max: 150.6 cm/sec LVOT Max Pedro Luis: 122.3 cm/sec Ao V2 mean: 109.3 cm/sec LV V1 max P.0 mmHg Ao max P.1 mmHg LV V1 VTI: 26.2 cm Ao mean P.2 mmHg LANI(I,D): 5.3 cm2 Ao V2 VTI: 27.3 cm LANI(V,D): 4.5 cm2 sev ratio: 0.96 LANI indexed to BSA (cm^2/m^2): 2.3 MV E max pedro luis: 66.8 cm/sec PA V2 max: 83.1 cm/sec MV A max pedro luis: 66.2 cm/sec PA V2 mean: 64.0 cm/sec MV E/A: 1.0 PA mean P.7 mmHg Med Peak E' Pedro Luis: 6.9 cm/sec PA pr(Accel): 49.1 mmHg E/E' med: 9.7 PA Accel Time: 0.07 sec MV dec time: 0.19 sec SV(LVOT): 145.0 ml Reading Physician:01:31 PM ECG Data Attestation: I personally reviewed and interpreted this ECG as follows: (See below) Interpretation: Twelve lead EKG performed February 08, 2018 and 07, as follows: Regular ventricular rhythm with a rate of 107 beats per minute P waves present correlating with QRS complexes IN interval 185 millisecond QRS duration 86 milliseconds QTC interval 378 millisecond No ectopy No ST segment elevation or depression Interpretation: Sinus tachycardia; no signs of acute ischemia; abnormal EKG as interpreted being ED MD. Critical Care Time Critical Care Time: Yes Total Critical Care Time: 60 Attestation: Critical care time was necessary, due to high probability of imminent neurologic decline. Critical care time is exclusive of separately billable procedures. Critical care time included: Interviewing and examining the patient, ordering and reviewing laboratory studies, ordering and reviewing imaging studies, evaluating cardiac output, evaluating oxygen saturation, d iscussion with consultants, discussion with family, re-examining the patient, and documentation. Discharge Plan Departure Patient Disposition: Home Clinical Impression: Carotid artery dissection Cerebrovascular accident Qualifiers: CVA mechanism: other Qualified Code(s): I63.89 - Other cerebral infarction Prescriptions: No Action No Known Home Medications RF: 0 Referrals: Evangelina Renee ARNP [Primary Care Provider] -
--- NOTE | 2019-02-08 07:38 | DI.MRI.S_ITS ---
PROCEDURE: MR BRAIN (IAC) WWO CON INDICATIONS: facial droop TECHNIQUE: Noncontrast sagittal T1 spin echo, axial FLAIR, axial gradient echo, axial diffusion and ADC through the brain. Axial thin-slice 3D CISS, coronal TruFISP, axial T1 spin echo with fat saturation through the internal auditory canals. After the administration of contrast, thin slice axial and coronal T1 spin echo with fat saturation through the internal auditory canals, and axial T1 spin echo with fat saturation through the brain. COMPARISON: [facility], CT, CT HEAD/BRAIN WO CON, 02/08/2019, 7:11. FINDINGS: Image quality: Excellent. Cerebellopontine angles: No cerebellopontine angle masses. Inner ear structures appear normally formed. No suspicious enhancement in the internal auditory canal or along the course of the 7th cranial nerve. CSF spaces: Ventricles are normal in size and shape. No extra-axial fluid collections. Basal cisterns are patent. Brain: No intracranial bleeds or mass effects. Branham-white matter interface is intact except at the right parietal region superiorly where a 2 cm focus of acute or subacute ischemic injury can be seen on the diffusion imaging pulse sequence series 10 image 70. This has a subtle degree of elevated flair signal and on the gradient T1 imaging a small focus of curvilinear low signal intensity is present conceivably a thrombus within a vessel within the associated cortical sulcus. No significant mass effect. No abnormal intracranial enhancement. Diffusion weighted images demonstrate no acute ischemic insults. Brainstem appears normal. Normal intravascular flow voids are present. Skull and face: Calvarial marrow signal is normal. Orbits appear normal. Sinuses: Sinuses and mastoids are clear. IMPRESSION: Small 2 cm acute or subacute ischemic injury involving the right parietal lobe superiorly as discussed, potentially embolic in origin given the small low signal intensity curvilinear signal abnormality in an area of cortical vessel within the sulcus abutting the area of injury. The findings were discussed in detail with the ordering emergency room physician caring for the patient. This area of abnormality cannot be identified on the earlier CT scanning from today. No additional area of prior ischemic injury is found. No cranial nerve abnormality is identified. Dictated by: Yasir Holman M.D. on 02/08/2019 at 9:54 Approved by: Yasir Holman M.D. on 02/08/2019 at 10:05
[2019-02-08 07:40] LABS: Add Manual Diff / Slide Review NO; Basophils Absolute Auto 0 /uL (0-100); Basophils Percent Auto 0.6 % (0-2); Eosinophils Absolute Auto 100 /uL (0-450); Eosinophils Percent Auto 1.3 % (2-4); Hematocrit 42.5 % (41-53); Hemoglobin 14.9 g/dL (13.5-17.5); Lymphocytes Absolute Auto 1800 /uL (1100-4500); Lymphocytes Percent Auto 32.9 % (25-40); Mean Corpuscular Hemoglobin 29.9 PG (26-34); Mean Corpuscular Volume 85.4 fL (80-100); Monocytes Absolute Auto 600 /uL (0-900); Monocytes Percent Auto 11.3 % (3-14); Neutrophils Absolute Auto 2900 /uL (1500-7000); Neutrophils Percent Auto 53.9 % (50-75); Platelet Count 128 X10^3/uL (150-400); Red Blood Cell Count 4.98 X10^6/uL (4.5-5.9); Red Cell Distribution Width 12.7 % (11.6-14.8); White Blood Cell Count 5.3 X10^3/uL (4.5-11.0)
--- NOTE | 2019-02-08 07:42 | DI.CT.S_ITS ---
PROCEDURE: CT HEAD/BRAIN WO CON INDICATIONS: Facial droop, numbness to lt hand TECHNIQUE: Noncontrast 4.5 mm thick angled axial sections acquired from the foramen magnum to the vertex, with coronal and sagittal reformats. For radiation dose reduction, the following was used: automated exposure control, adjustment of mA and/or kV according to patient size. COMPARISON: None. FINDINGS: Image quality: Excellent. CSF spaces: Basal cisterns are patent. No extra-axial fluid collections. Ventricles are normal in size and shape. Brain: No midline shift. No intracranial masses or hemorrhage. Branham-white matter interface is normal. Skull and face: Calvarium and visualized facial bones are intact, without suspicious lesions. Sinuses: Visualized sinuses and mastoids are clear. IMPRESSION: 1. No acute intracranial abnormalities. No significant discrepancy with the slot shift manager radiology preliminary report. Dictated by: Wally Malik M.D. on 02/08/2019 at 7:48 Approved by: Wally Malik M.D. on 02/08/2019 at 7:49
[2019-02-08 07:47] LABS: Alanine Aminotransferase 71 IU/L (21-72); Albumin 4.3 g/dL (3.5-5.0); Albumin Globulin Ratio 1.3 (1.0-2.8); Alkaline Phosphatase 50 U/L (38-126); Aspartate Aminotransferase 46 IU/L (17-59); BUN Creatinine Ratio 24.3 (6-22); Bilirubin Total 0.7 mg/dL (0.2-1.3); Blood Urea Nitrogen 17 mg/dL (9-20); Calcium 9.3 mg/dL (8.4-10.2); Carbon Dioxide 28 mmol/L (22-32); Chloride 104 mmol/L (98-107); Estimated Glomerular Filt Rate > 60.0 mL/min (>60); Globulin 3.3 g/dL (1.7-4.1); Glucose 118 mg/dL (70-100); HEMOLYSIS < 15 (0-50); Potassium 4.1 mmol/L (3.4-5.1); Sodium 140 mmol/L (137-145); Total Protein 7.6 g/dL (6.3-8.2)
[2019-02-08] MEDS: ASPIRIN 81 MG TAB 324 MG PO (07:48)
[2019-02-08] MEDS: SODIUM CHLORIDE 0.9% 1,000 ML 1000 ML IV (07:48)
--- NOTE | 2019-02-08 08:34 | PC.NURSE ---
Dr. King aware of NiHss. pt got the month wrong when asked. he has a lot of trouble with the fifty fifty. he kept saying fifty five. left facial droop continues. reports he feels disoriented.
--- NOTE | 2019-02-08 10:07 | PC.NURSE ---
pt just called me into room, reports new left thumb numbness, and new left nasal numbness.. continues with a facial droop. Dr. King aware.
--- NOTE | 2019-02-08 10:48 | DI.ECHO.S_ITS ---
[facility] +---------+ [facility] +---------+ : : [address] : [place] : : : : [id number] : : : : Phone: [phone]+ Echocardiogram Report + + :Name: ARTIE RHOADES Study Date: 02/08/2019 Height: 72 in : :[facility] Exam Location: [facility] Weight: 255 lb : : Gender: Male BSA: 2.4 m2 : :: 1975 Age: 43 yrs BP: 164/102 mmHg: :Reason For Study: STROKE : : Performed By: Johnny Worrell : :Referring: SHAKIRA ARTEAGA : + + Interpretation Summary The ejection fraction is estimated to be 60-65%. Injection of contrast documented an interatrial shunt. There is no significant valvular heart disease. Procedure: A two-dimensional transthoracic echocardiogram with color flow and Doppler was performed. The study quality was technically good. There is no prior echocardiogram noted for this patient. A saline contrast injection was performed to assess for cardiac shunting. The patient was in normal sinus rhythm during the exam. Left Ventricle: The left ventricle is normal in size. There is normal left ventricular wall thickness. The ejection fraction is estimated to be 60-65%. There are no focal wall motion abnormalities. Right Ventricle: The right ventricle is normal in size and function. Atria: The left atrium is mildly dilated. Right atrial size is normal. Injection of contrast documented an interatrial shunt. Mitral Valve: The mitral valve is normal in structure and function. There is trace mitral regurgitation. Aortic Valve: The aortic valve is normal in structure and function. The aortic valve is trileaflet. The aortic valve opens well. No aortic regurgitation is present. Tricuspid Valve: The tricuspid valve is normal in structure and function. No tricuspid regurgitation. Pulmonary artery pressures cannot be estimated because of the lack of a measurable TR jet velocity. Pulmonic Valve: The pulmonic valve is normal in structure and function. There is trace pulmonic regurgitation. Great Vessels: The aortic root is normal size. The ascending aorta is mildly enlarged. The pulmonary artery is normal size. The IVC is of normal diameter and collapses greater than 50% with a sniff. This suggests a low right atrial pressure of 3 mm Hg. Pericardium/ Pleura There is no pericardial effusion. There is no pleural effusion. MMode/2D Measurements & Calculations LVIDd: 5.1 cm LVOT diam: 2.7 cm LVIDs: 3.6 cm Ao root diam: 3.3 cm FS: 29.5 % Aortic Jxn: 3.0 cm EPSS: 0.21 cm asc Aorta Diam: 3.8 cm IVSd: 1.3 cm LVPWd: 1.0 cm LV lara. diameter/BSA (cm/m^2): 2.2 LV sys. diameter/BSA (cm/m^2): 1.5 LA dimension: 4.0 cm RA long axis: 5.4 cm LA A2 area: 22.6 cm2 RA area: 21.1 cm2 LA A4 area: 23.7 cm2 RA vol: 70.4 ml LA length (vol): 5.6 cm RA : 29.8 ml/m2 LA vol: 80.8 ml IVC diam: 1.8 cm LA vol index: 34.2 ml/m2 Doppler Measurements & Calculations Ao V2 max: 150.6 cm/sec LVOT Max Pedro Luis: 122.3 cm/sec Ao V2 mean: 109.3 cm/sec LV V1 max P.0 mmHg Ao max P.1 mmHg LV V1 VTI: 26.2 cm Ao mean P.2 mmHg LANI(I,D): 5.3 cm2 Ao V2 VTI: 27.3 cm LANI(V,D): 4.5 cm2 sev ratio: 0.96 LANI indexed to BSA (cm^2/m^2): 2.3 MV E max pedro luis: 66.8 cm/sec PA V2 max: 83.1 cm/sec MV A max pedro luis: 66.2 cm/sec PA V2 mean: 64.0 cm/sec MV E/A: 1.0 PA mean P.7 mmHg Med Peak E' Pedro Luis: 6.9 cm/sec PA pr(Accel): 49.1 mmHg E/E' med: 9.7 PA Accel Time: 0.07 sec MV dec time: 0.19 sec SV(LVOT): 145.0 ml Reading Physician:01:[id number] PM
--- NOTE | 2019-02-08 10:58 | DI.CT.S_ITS ---
PROCEDURE: CT ANGIO HEAD AND NECK INDICATIONS: left facial droop TECHNIQUE: Pre-contrast images were performed earlier in the day and are not repeated. After the administration of intravenous contrast, 1 mm thick sections acquired from the aortic arch through the [place]. Post-contrast 4.5 mm thick sections then re-acquired from the foramen magnum to the vertex. 3-dimensional kegirus-ylsrbzmtk-hugprjiskd (MIP) and/or volume rendering reformats were acquired of the central intracranial vasculature and neck separately. COMPARISON: [facility], MR, MR BRAIN (IAC) WWO CON, 02/08/2019, 8:55. [facility], CT, CT HEAD/BRAIN WO CON, 02/08/2019, 7:11. FINDINGS: Image quality: Excellent. BRAIN: CSF spaces: Ventricles are normal in size and shape. Basal cisterns are patent. No extra-axial fluid collections. Brain: No midline shift. No intracranial bleeds or masses. Branham-white matter interface appears intact. Skull and face: Calvarium and facial bones appear intact, without suspicious lesions. Orbits appear normal. Sinuses: Sinuses and mastoids are clear. HEAD CT ANGIOGRAPHY: Anterior circulation: There is generalized narrowing seen of the right petrous intracranial internal carotid artery compared to the left. 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 This is considered to be a normal developmental variant of the [place], of typically no clinical consequence. The flow within the paired anterior cerebral arteries is otherwise normal and symmetric. The flow within the middle cerebral arteries is mildly asymmetric, and decreased on the right. No focal stenosis is seen within the right proximal middle cerebral artery. The anterior communicating artery is seen. No aneurysms are seen. Posterior circulation: Visualized portions of the vertebral arteries demonstrate normal caliber, and join to form a normal appearing basilar artery. Flow within the posterior cerebral arteries is normal and symmetric. No aneurysms are seen. NECK CT ANGIOGRAPHY: Carotid system: The great vessels demonstrate a conventional anatomy as they arise from the aortic arch. The origins of the common carotid arteries appear patent. The common carotid arteries demonstrate normal caliber and courses. The bifurcation regions are both widely patent. The internal carotid arteries demonstrate normal calibers and courses. Posterior circulation: The origins of the vertebral arteries both appear widely patent. The more superior extracranial portions of both vertebral arteries also demonstrate normal courses and calibers. They join to form a normal appearing basilar artery. Soft tissues: Visualized neck soft tissues demonstrate no suspicious abnormalities. Bones: No suspicious bony lesions. Visualized cervical spine appears normally aligned. IMPRESSION: Generalized narrowing of the right petrous internal carotid artery compared to the left. There is asymmetric flow seen within the middle cerebral arteries, decreased on the right compared to the left. [place] anomaly incidentally noted, with an aplastic right A1 segment. Any quantitative measurements of stenosis were performed using NASCET criteria. Dictated by: Aubrey Montiel M.D. on 02/08/2019 at 10:18 Approved by: Aubrey Montiel M.D. on 02/08/2019 at 10:23
[2019-02-08] MEDS: ATORVASTATIN 20 MG TABLET 40 MG PO (12:17)
--- NOTE | 2019-02-08 14:24 | PC.NURSE ---
Dr. King aware of repeat NIHSS. pt ambulated to bathroom without difficulty. continues to have a minor facial droop. the droop has improved from this morning. pt was able to answer LOC question regarding date correctly. pt's dysarthia has resolved. Dr. King aware of the above. VSS.
[2019-02-08 16:39] LABS: INR 0.9 (0.9-1.3); Prothrombin Time 10.8 SECONDS (10.1-12.7)
--- NOTE | 2019-02-08 17:53 | PC.NURSE ---
report to ROSE Sigala at transfer center. Pt will go to [facility] at [facility].[phone]
== END 2019-02-08 20:50 | disposition home or self-care (01) ==
PROVIDERS: Emergency Provider Emergency Medicine; Family Provider Nurse Practitioner Family; PCP Nurse Practitioner Family
DX: I77.71 Dissection of carotid artery (principal); I63.89 Other cerebral infarction
CPT/HCPCS: 36415; 36591; 70450; 70496; 70498; 70553; 80053; 81003; 85025; 85610; 93005; 93306; 96360; 99285; Q9967